=== PATIENT | male | born 1975 ===

== ENCOUNTER 2022-10-23 19:26 | Day surgery (SDC) | payer OTHER, SELFPAY ==
[2022-10-23] VITALS (41 sets, daily range): BP systolic 115–172; BP diastolic 63–95; PULSE 69–120; RESP 16–20; TEMP 36.7–36.8; O2SAT 92–98; BMI 36.2; BMI 36.6
--- NOTE | 2022-10-23 19:40 | ED.LOWEXIN ---
HPI - Extremity Injury (Lower) General Time Seen by Provider: 19:40 Date Seen: 10/23/22 Chief Complaint: Lower Extremity Swelling Stated Complaint: Crash, displaced knee Time Seen by Provider: 10/23/22 19:35 Source: patient and RN notes reviewed Mode of arrival: wheelchair Limitations: no limitations History of Present Illness HPI Narrative: Patient is a 47-year-old male ambulatory in the ED of his own accord with complaint of her right knee injury. He was Going in came in for landing, caught his right foot and had a quick snap in his knee. He notes that his kneecap looks higher, when he activates his quadriceps it causes severe pain in the knee area. He thought maybe his knee was dislocated initially. He denies any numbness tingling of the lower extremity. He was wearing a helmet, did not hit his head, no neck or back pain, no difficulty breathing, no chest wall pain, no abdominal pain, no hip or femur pain on that side. Arms another leg unaffected. Nursing staff appropriately called a TT a when the patient came in. After initial assessment, was decided that TT a could be called off. This is a patient who apparently looks like he has a patellar tendon issue with a high-riding patella. GCS is 15/15. Primary survey reveals no airway breathing or circulatory deficits, no significant disability. Related Data Home Medications Medication Instructions Recorded Confirmed lisinopril 10 mg tablet 10 mg PO DAILY 10/24/22 10/24/22 Allergies Allergy/AdvReac Type Severity Reaction Status Date / Time No Known Drug Allergies Allergy Verified 10/23/22 19:40 Review of Systems Status of ROS: Reports: 10 or more systems reviewed and unremarkable except as noted in History and below [facility] Medical History Hyperlipidemia ?E78.5 - Hyperlipidemia, unspecified (ICD-10) Essential hypertension ?I10 - Essential (primary) hypertension (ICD-10) Surgical History Previous back surgery ?Z98.890 - Other specified postprocedural states (ICD-10) Social History Narrative: Lives with in [place] (she would be MDM if needed). 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 Nonsmoker, no alcohol use. Full code What is your current living situation?: I presently have a place to live Problems where you live: no known problems Problems where you live details: no known problems In the past 12 months, utilities in danger of being shut off: no In the past 12 mos, have been you worried that your food would run out before you had money to buy more?: never true In the past 12 mos, the food you bought just didn't last and you didn't have money to buy more?: never true Smoking Status: Never smoker Second hand tobacco smoke exposure: No How often do you have a drink containing alcohol: never AUDIT-C Alcohol total score: 0 Non-prescribed substance use: denies use Caffeine: Yes (Coffee) How often does anyone, including family, friends and others, physically hurt you: never How often does anyone, including family, friends and others, insult or talk down to you: never How often does anyone, including family, friends and others, threaten you with harm: never How often does anyone, including family, friends and others, scream or curse at you: never service: No Exam Const: Vital Signs, click to edit/add: Vital Signs - 24 hr 10/23/22 19:32 10/23/22 19:51 10/23/22 19:53 Temperature 98.3 F Pulse Rate 88 82 Pulse Rate [Right Pulse Oximeter] 120 H Respiratory Rate 20 Blood Pressure 158/94 H Blood Pressure [Ri ght Upper Arm] 172/95 H Pulse Oximetry 98 97 96 Oxygen Delivery Me thod Room Air 10/23/22 20:12 10/23/22 20:13 10/23/22 20:20 Temperature Pulse Rate 82 85 77 Pulse Rate [Right Pulse Oximeter] Respiratory Rate Blood Pressure 149/78 H Blood Pressure [Ri ght Upper Arm] Pulse Oximetry 97 96 97 Oxygen Delivery Me thod 10/23/22 20:22 10/23/22 20:30 10/23/22 20:32 Temperature Pulse Rate 79 72 77 Pulse Rate [Right Pulse Oximeter] Respiratory Rate Blood Pressure 131/85 136/91 H Blood Pressure [Ri ght Upper Arm] Pulse Oximetry 97 96 96 Oxygen Delivery Me thod 10/23/22 20:33 10/23/22 20:40 10/23/22 20:50 Temperature Pulse Rate 73 78 72 Pulse Rate [Right Pulse Oximeter] Respiratory Rate Blood Pressure Blood Pressure [Ri ght Upper Arm] Pulse Oximetry 97 97 96 Oxygen Delivery Me thod 10/23/22 20:52 10/23/22 21:00 10/23/22 21:02 Temperature Pulse Rate 73 74 77 Pulse Rate [Right Pulse Oximeter] Respiratory Rate Blood Pressure 133/91 H 135/84 Blood Pressure [Ri ght Upper Arm] Pulse Oximetry 96 98 96 Oxygen Delivery Me thod 10/23/22 21:10 10/23/22 21:12 10/23/22 21:20 Temperature Pulse Rate 72 69 73 Pulse Rate [Right Pulse Oximeter] Respiratory Rate Blood Pressure 132/92 H Blood Pressure [Ri ght Upper Arm] Pulse Oximetry 97 96 96 Oxygen Delivery Me thod 10/23/22 21:22 10/23/22 21:30 10/23/22 21:32 Temperature Pulse Rate 81 71 76 Pulse Rate [Right Pulse Oximeter] Respiratory Rate Blood Pressure 133/77 127/86 Blood Pressure [Ri ght Upper Arm] Pulse Oximetry 97 96 96 Oxygen Delivery Me thod 10/23/22 21:40 10/23/22 21:42 10/23/22 21:50 Temperature Pulse Rate 80 75 87 Pulse Rate [Right Pulse Oximeter] Respiratory Rate Blood Pressure 129/93 H Blood Pressure [Ri ght Upper Arm] Pulse Oximetry 97 97 97 Oxygen Delivery Me thod 10/23/22 21:52 10/23/22 22:02 10/23/22 22:12 Temperature Pulse Rate Pulse Rate [Right Pulse Oximeter] Respiratory Rate Blood Pressure 140/91 H 115/63 136/88 Blood Pressure [Ri ght Upper Arm] Pulse Oximetry Oxygen Delivery Me thod 47-year-old male is alert and interactive, sitting on the bed in exam room 8. Pupils equal round reactive to light sclera clear face atraumatic, oropharynx normal, no traumatic changes noted. External ears and nose normal. Neck is supple, no midline tenderness, no cervical adenopathy, no thyromegaly masses or nodules. Back inspected, no midline tenderness no wounds noted. Lungs are clear with good air entry, able speak in complete sentences, voice normal, no tachypnea, no wheezing or crackles. CV regular rate and rhythm, no murmur, normal S1 and S2. Abdomen is soft, nontender, no organomegaly noted. Compression of the pelvis without any pain. No pain over hips. Patella is high-riding on the right knee but the joint line over the knee itself is nontender, no popliteal fossa masses. Knee palpates intact. He has good peripheral pulses of this extremity, can move his ankle and toes without any difficulty. Good cap refill. Arms and left lower extremity unaffected. Documenting provider has reviewed patient's vital signs: yes Course Course Hospital Course: Patient will have imaging with plain films of his knee, likely talk to Orthopedics soon as I see the films. Likely to be placed in knee immobilizer and crutches. Reevaluation(s) Time of Reevaluation #1: 21:30 Reevaluation #1: Reviewed with patient that I had spoken with Orthopedics. Will get a knee immobilizer on, see how he does weight-bearing with this. He may not need crutches but certainly if he does need them they will be provided. He had had 2 Percocet earlier for pain management. Nursing staff will get the knee immobilizer on and assess need for crutches. Time of Reevaluation #2: 22:16 Reevaluation #2: Staff could not get the knee immobilizer on at all, patient feels that when he attempts to straighten his knee he feels the patella pulling further up in has shooting pain in his leg. We are going to attempt to place an IV, put him on pulse oximetry, give him some IV morphine and Versed to see if I can assist to get this knee immobilizer on. Time of Reevaluation #3: 22:53 Reevaluation #3: With 4 mg IV morphine and 2 mg IV Versed, was able to easily get the knee immobilizer on. His was quite anxious, wondering about transfer elsewhere, reviewed with them that surgery for this is not going to happen emergently anywhere we discussed indications for emergent surgery in what types of things went for that, this is not necessary for emergent surgery. She is worried about having him at home, he is concerned himself about safety at home with a knee immobilizer, going upstairs. Did discuss with our hospitalist, she will accept for pain management. They understand that this is not a guarantee for surgery tomorrow. One thought would be though if he does go home, he could possibly see physical therapy to help with recommendations for mobilization with the knee immobilizer on. They are quite happy with the plan to stay overnight. Consultations Consultation #1: Did review with Zenia RICK in Orthopedics. She can see the appearance of the patellar tendon dislocation on the x-ray films. Recommended a knee immobilizer, could bear weight once this was on if he felt comfortable. She will have the office contact him tomorrow for an appointment. Time: 21:26 Vital Signs Vital signs: Initial Vital Signs Temperature 98.3 F 10/23/22 19:32 Temperature Source Temporal Artery Scan 10/23/22 19:32 Pulse Rate 120 H 10/23/22 19:32 Pulse Rhythm Regular 10/23/22 19:32 Pulse Strength 3+ Normal 10/23/22 19:32 Respiratory Rate 20 10/23/22 19:32 Blood Pressure 172/95 H 10/23/22 19:32 Blood Pressure Mean 120 H 10/23/22 19:32 Blood Pressure Position Supine 10/23/22 19:32 Pulse Oximetry 98 10/23/22 19:32 Oxygen Delivery Method Room Air 10/23/22 19:32 Vital Signs Temperature 98.3 F 10/23/22 19:32 Pulse Rate 120 H 10/23/22 19:32 Respiratory Rate 20 10/23/22 19:32 Blood Pressure 172/95 H 10/23/22 19:32 Pulse Oximetry 98 10/23/22 19:32 Oxygen Delivery Method Room Air 10/23/22 19:32 Temperature 98.0 F 10/24/22 10:35 Pulse Rate 67 10/24/22 10:40 Respiratory Rate 16 10/24/22 10:40 Blood Pressure 123/73 10/24/22 10:40 Pulse Oximetry 99 10/24/22 10:40 Oxygen Delivery Method Nasal Cannula 10/24/22 10:40 Oxygen Flow Rate 2 10/24/22 10:40 MDM - Extremity Injury (Lower) Lab Data Labs: Lab Results 10/24/22 Range/Units 10:03 WBC 12.73 H (4.50-11.00) K/uL RBC 5.02 (4.30-5.90) m/uL Hgb 14.7 (13.5-17.5) gm/dL Hct 44.7 (37.0-53.0) % MCV 89 (80-100) fL MCH 29 (26-34) pg MCHC 33 (32-36) gm/dL RDW Coeff of Robin 12.5 (11.5-15.5) % Plt Count 297 (140-440) K/uL Neut % (Auto) 82.1 H (42.0-72.0) % Lymph % (Auto) 11.4 L (20-44) % Edmunds % (Auto) 5.9 (0.0-11.0) % Eos % (Auto) 0.1 (0.0-7.0) % Baso % (Auto) 0.3 (0.0-3.0) % Neut # (Auto) 10.50 H (1.7-7.0) K/uL Lymph # (Auto) 1.50 (0.90-2.90) K/uL Edmunds # (Auto) 0.80 (0.00-0.90) K/UL Eos # (Auto) 0.00 (0.00-0.50) K/uL Baso # (Auto) 0.00 (0.00-0.30) K/uL Abs Immat Gran (auto) 0.00 (0.00-0.30) K/uL Imm/Tot Granulo (auto) 0.2 % Sodium 139 (135-149) mmol/L Potassium 3.9 (3.6-5.1) mmol/L Chloride 104 (96-114) mmol/L Carbon Dioxide 27 (20-32) mmol/L Anion Gap 8 (7-15) mEq/L BUN 10 (5-24) mg/dL Creatinine 0.7 (0.5-1.5) mg/dL Estimated Creat Clear 133.25 Estimated GFR 114 ml/min Glucose 106 (60-115) mg/dL Calcium 9.0 (8.4-10.6) mg/dL Imaging Data XR right knee: Attestation: I have reviewed the pertinent imaging results. Radiologist's impression: Patient: ETHAN MCCRACKEN Facility:?[facility] Patient ID:?[id number] Site Patient ID:?[id number]. Site :?[id number] Study:?XRay Knee Right URGENT TRAUMA-10/23/2022 9:06:06 PM Ordering Physician:Hayden Carlton Final Report: INDICATION: Injury. TECHNIQUE: Three views. IMPRESSION: Elevated patella. Lateral tilt. Probable avulsion of the patellar tendon. Small celena of presumed avulsed bone ventral from the intracondylar notch on the lateral view. No obvious joint effusion. Dictated by Brando Berumen MD @ 10/23/2022 10:11:38 PM (Electronic Signature) Critical Care Time Critical Care Time Critical Care Time: No Discharge Plan Discharge Clinical Impression: Patellar tendon rupture Patient Disposition: Still a Patient Discharge Location: [facility] Activity Detail: WRITTEN OUT BY DR. CHAMBERS Discharge Diet: Regular
--- NOTE | 2022-10-23 19:45 | CRLHL7_ITS ---
For Patients: As a result of the Century Cures Act, medical imaging exams and procedure reports are released immediately into your electronic medical record. You may view this report before your referring provider. If you have questions, please contact your health care provider. INDICATION: Injury. TECHNIQUE: Three views. IMPRESSION: Elevated patella. Lateral tilt. Probable avulsion of the patellar tendon. Small celena of presumed avulsed bone ventral from the intracondylar notch on the lateral view. No obvious joint effusion. Dictated by Brando Berumen MD @ 10/23/2022 10:11:38 PM (Electronically Signed)
[2022-10-23] MEDS: OxyCODONE/APAP 5-325 TABLET 2 TAB PO (20:45)
[2022-10-23] MEDS: MORPHINE 4 MG/ML INJ IVP (22:43)
[2022-10-23] MEDS: MIDAZOLAM HCL 1 MG/ML inj 2 MG IVP (22:44)
--- NOTE | 2022-10-23 23:10 | ED.NURSE ---
pt report given to ARIES HERNANDEZ on [employer]. Patient going to 259
--- NOTE | 2022-10-23 23:33 | P.IMHP_ITS ---
Hospitalist- H&P: HPI History of Present Illness Date Seen: 10/24/22 Chief complaint: Crash, displaced knee Narrative: Clive Gallardo is a 47 year old male who was paragliding near his home in [place] today (does this regularly). He was coming down for a landing when the wind shifted and he caught his right foot in the grass, immediately feeling a snap near his knee. He was unable to ambulate after injury. He was wearing a helmet and did not hit his head; no LOC, no other injuries. ER Course and Findings: - Concern for avulsion of patellar tendon on XR - received Percocet, Morphine, and Midazolam - Ortho consulted by phone; recommended knee immobilizer and f/u; patient had difficulty with pain control and ambulation. Admitted for pain control, therapy evaluation, ortho consult History updated below. Patient is generally healthy; has not had problems with anesthesia in the past. PCP is Dr. Barros in [place]. Review of Systems Status of ROS: Reports: 10 or more systems reviewed and unremarkable except as noted in History and below Narrative: - no chest pain or dyspnea - active regularly with exercise most days of the week [facility] Medical History (Updated 10/24/22 @ 00:55 by Fatimah Orourke MD) Hyperlipidemia ?E78.5 - Hyperlipidemia, unspecified (ICD-10) Essential hypertension ?I10 - Essential (primary) hypertension (ICD-10) Surgical History (Updated 10/24/22 @ 00:03 by Fatimah Orourke MD) Previous back surgery ?Z98.890 - Other specified postprocedural states (ICD-10) Social History (Updated 10/24/22 @ 00:04 by Fatimah Orourke MD) Narrative: Lives with in [place] (she would be MDM if needed). 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 Nonsmoker, no alcohol use. Full code Smoking Status: Never smoker How often do you have a drink containing alcohol: never AUDIT-C Alcohol total score: 0 Non-prescribed substance use: denies use Meds Home Medications and Allergies Home Medications Medication Instructions Recorded Confirmed Type lisinopril 10 mg tablet 10 mg PO DAILY 10/24/22 10/24/22 History Allergies Allergy/AdvReac Type Severity Reaction Status Date / Time No Known Drug Allergies Allergy Verified 10/23/22 19:40 Exam Narrative: Exam Narrative: GEN: Alert and oriented, laying comfortably in bed and answering questions appropriately HEENT: EOMIs bilaterally, no scleral icterus CV: RRR, No concerning murmurs R: LCTA bilaterally without concerning wheezing, air movement is adequate Ab: soft, nondistended Back: normal contours, no concerning skin findings Ext: Wearing knee immobilizer over right knee. Normal capillary refill and sensation of bilateral lower extremities, normal and symmetric peripheral pulses Skin: No skin lesions or rashes on exposed skin Neuro: Nonfocal Psych: Appropriate Const: Vital Signs, click to edit/add: Vital Signs - 24 hr 10/23/22 19:32 10/23/22 19:51 10/23/22 19:53 Temperature 98.3 F Pulse Rate 88 82 Pulse Rate [Right Pulse Oximeter] 120 H Respiratory Rate 20 Blood Pressure 158/94 H Blood Pressure [Ri ght Upper Arm] 172/95 H Pulse Oximetry 98 97 96 Oxygen Delivery Me thod Room Air 10/23/22 20:12 10/23/22 20:13 10/23/22 20:20 Temperature Pulse Rate 82 85 77 Pulse Rate [Right Pulse Oximeter] Respiratory Rate Blood Pressure 149/78 H Blood Pressure [Ri ght Upper Arm] Pulse Oximetry 97 96 97 Oxygen Delivery Me thod 10/23/22 20:22 10/23/22 20:30 10/23/22 20:32 Temperature Pulse Rate 79 72 77 Pulse Rate [Right Pulse Oximeter] Respiratory Rate Blood Pressure 131/85 136/91 H Blood Pressure [Ri ght Upper Arm] Pulse Oximetry 97 96 96 Oxygen Delivery Me thod 10/23/22 20:33 10/23/22 20:40 10/23/22 20:50 Temperature Pulse Rate 73 78 72 Pulse Rate [Right Pulse Oximeter] Respiratory Rate Blood Pressure Blood Pressure [Ri ght Upper Arm] Pulse Oximetry 97 97 96 Oxygen Delivery Me thod 10/23/22 20:52 10/23/22 21:00 10/23/22 21:02 Temperature Pulse Rate 73 74 77 Pulse Rate [Right Pulse Oximeter] Respiratory Rate Blood Pressure 133/91 H 135/84 Blood Pressure [Ri ght Upper Arm] Pulse Oximetry 96 98 96 Oxygen Delivery Me thod 10/23/22 21:10 10/23/22 21:12 10/23/22 21:20 Temperature Pulse Rate 72 69 73 Pulse Rate [Right Pulse Oximeter] Respiratory Rate Blood Pressure 132/92 H Blood Pressure [Ri ght Upper Arm] Pulse Oximetry 97 96 96 Oxygen Delivery Me thod 10/23/22 21:22 10/23/22 21:30 10/23/22 21:32 Temperature Pulse Rate 81 71 76 Pulse Rate [Right Pulse Oximeter] Respiratory Rate Blood Pressure 133/77 127/86 Blood Pressure [Ri ght Upper Arm] Pulse Oximetry 97 96 96 Oxygen Delivery Me thod 10/23/22 21:40 10/23/22 21:42 10/23/22 21:50 Temperature Pulse Rate 80 75 87 Pulse Rate [Right Pulse Oximeter] Respiratory Rate Blood Pressure 129/93 H Blood Pressure [Ri ght Upper Arm] Pulse Oximetry 97 97 97 Oxygen Delivery Me thod 10/23/22 21:52 10/23/22 22:02 10/23/22 22:12 Temperature Pulse Rate Pulse Rate [Right Pulse Oximeter] Respiratory Rate Blood Pressure 140/91 H 115/63 136/88 Blood Pressure [Ri ght Upper Arm] Pulse Oximetry Oxygen Delivery Me thod 10/23/22 22:15 10/23/22 22:22 10/23/22 22:32 Temperature Pulse Rate Pulse Rate [Right Pulse Oximeter] Respiratory Rate Blood Pressure 131/83 140/84 H Blood Pressure [Ri ght Upper Arm] Pulse Oximetry 98 Oxygen Delivery Me thod 10/23/22 22:37 10/23/22 22:40 10/23/22 22:42 Temperature Pulse Rate 86 87 85 Pulse Rate [Right Pulse Oximeter] Respiratory Rate Blood Pressure 130/94 H Blood Pressure [Ri ght Upper Arm] Pulse Oximetry 96 95 93 Oxygen Delivery Me thod 10/23/22 22:50 10/23/22 22:52 10/23/22 22:53 Temperature Pulse Rate 70 73 75 Pulse Rate [Right Pulse Oximeter] Respiratory Rate Blood Pressure 125/80 Blood Pressure [Ri ght Upper Arm] Pulse Oximetry 93 94 94 Oxygen Delivery Me thod 10/23/22 23:00 10/23/22 23:02 10/23/22 23:10 Temperature Pulse Rate 75 75 70 Pulse Rate [Right Pulse Oximeter] Respiratory Rate Blood Pressure 126/79 Blood Pressure [Ri ght Upper Arm] Pulse Oximetry 92 92 94 Oxygen Delivery Me thod 10/23/22 23:12 Temperature Pulse Rate 71 Pulse Rate [Right Pulse Oximeter] Respiratory Rate Blood Pressure 117/83 Blood Pressure [Ri ght Upper Arm] Pulse Oximetry 92 Oxygen Delivery Me thod Assessment and Plan Assessment and plan (1) Patellar tendon rupture: Problem comment: - admit for pain control, therapies, Ortho consult Status: Acute
--- NOTE | 2022-10-24 | CRLHL7_ITS ---
For Patients: As a result of the Cures Act, medical imaging exams and procedure reports are released immediately into your electronic medical record. You may view this report before your referring provider. If you have questions, please contact your health care provider. Indication: patella tendon repair intra-op Technique: Right knee two views. Fluoroscopic time 14.9 seconds. IMPRESSION: Fluoroscopic guidance for patellar tendon repair. Dictated by Chandler Muniz MD @ 10/25/2022 8:50:47 AM (Electronically Signed)
[2022-10-24] MEDS: OXYCODONE 5 MG TABLET PO ×3 (01:14→09:23)
[2022-10-24 04:01] VITALS: BP 113/75; PULSE 60; RESP 16; TEMP 36.4; O2SAT 97
--- NOTE | 2022-10-24 06:51 | PC.NURSE ---
Pt is oriented x3. Afebrile. Pt reports 5/10 knee pain, managed with PRN oxycodone. Pt denies chest pain, SOB and N/V. Pt has been NPO since 0000 for the possibility of surgery today 10/24/22 having consult with ortho this morning. Pt is voiding and up ad [place] with crutches and has knee brace on. Pt slept intermittently throughout night.?Night uneventful. ?
[2022-10-24 07:30] VITALS: BP 150/96; PULSE 69; RESP 16; TEMP 36.8; O2SAT 96
[2022-10-24] MEDS: ACETAMINOPHEN 325 MG TABLET 975 MG PO (09:24)
[2022-10-24 09:59] VITALS: O2SAT 96
[2022-10-24 10:29] LABS: Chloride* 104 mmol/L (96-114)
[2022-10-24 10:30] LABS: Potassium* 3.9 mmol/L (3.6-5.1); Sodium* 139 mmol/L (135-149)
[2022-10-24 10:32] LABS: Creatinine* 0.7 mg/dL (0.5-1.5); Est. Creatinine Clearance* 133.25; Estimated Glomerular Filt Rate 114 ml/min
[2022-10-24 10:33] LABS: Anion Gap 8 mEq/L (7-15); Blood Urea Nitrogen* 10 mg/dL (5-24); Carbon Dioxide* 27 mmol/L (20-32); Glucose* 106 mg/dL (60-115)
[2022-10-24 10:35] VITALS: BP 126/82; PULSE 90; RESP 16; TEMP 36.7; O2SAT 99
[2022-10-24] MEDS: MIDAZOLAM HCL 1 MG/ML inj 2 MG IVP (10:36)
[2022-10-24] MEDS: fentaNYL 100 MCG/2 ML inj IVP (10:36)
[2022-10-24 10:38] VITALS: BP 120/67; PULSE 87; RESP 16; O2SAT 99
[2022-10-24 10:40] VITALS: BP 123/73; PULSE 67; RESP 16; O2SAT 99
--- NOTE | 2022-10-24 10:48 | PM.IMPN1 ---
Progress Note: A&P Assessment and plan (1) Patellar tendon rupture: Problem details: - admit for pain control, therapies, Ortho consult Status: Acute Subjective Date Seen: 10/24/22 Interval history: no acute issuess going to surgery and plan to discharge by ortho from same day surgery Exam Narrative: Exam Narrative: Gen: no acute distress HEENT: NCAT EOMI mmm Neck: Supple CV: RRR normal s1 s2 Lungs: CTAB Abd: Soft,nt, nd Neuro: Alert, oriented, CN grossly intact; nonfocal screening?exam Psych: appropriate affect MSK: age appropriate muscle mass Skin; Warm, dry no rash on face Const: Vital Signs, click to edit/add: Vital Signs - 24 hr 10/23/22 19:32 10/23/22 19:51 10/23/22 19:53 Temperature 98.3 F Pulse Rate 88 82 Pulse Rate [Pulse Oximeter] Pulse Rate [Right Dorsalis Pedis] Pulse Rate [Right Pulse Oximeter] 120 H Respiratory Rate 20 Blood Pressure 158/94 H Blood Pressure [Ri ght Arm] Blood Pressure [Ri ght Upper Arm] 172/95 H Pulse Oximetry 98 97 96 [facility] 10/23/22 20:12 10/23/22 20:13 10/23/22 20:20 Temperature Pulse Rate 82 85 77 Pulse Rate [Pulse Oximeter] Pulse Rate [Right Dorsalis Pedis] Pulse Rate [Right Pulse Oximeter] Respiratory Rate Blood Pressure 149/78 H Blood Pressure [Ri ght Arm] Blood Pressure [Ri ght Upper Arm] Pulse Oximetry 97 96 97 Oxygen Delivery Md thod 10/23/22 20:22 10/23/22 20:30 10/23/22 20:32 Temperature Pulse Rate 79 72 77 Pulse Rate [Pulse Oximeter] Pulse Rate [Right Dorsalis Pedis] Pulse Rate [Right Pulse Oximeter] Respiratory Rate Blood Pressure 131/85 136/91 H Blood Pressure [Ri ght Arm] Blood Pressure [Ri ght Upper Arm] Pulse Oximetry 97 96 96 Oxygen Delivery Me thod 10/23/22 20:33 10/23/22 20:40 10/23/22 20:50 Temperature Pulse Rate 73 78 72 Pulse Rate [Pulse Oximeter] Pulse Rate [Right Dorsalis Pedis] Pulse Rate [Right Pulse Oximeter] Respiratory Rate Blood Pressure Blood Pressure [Ri ght Arm] Blood Pressure [Ri ght Upper Arm] Pulse Oximetry 97 97 96 Oxygen Delivery Me thod 10/23/22 20:52 10/23/22 21:00 10/23/22 21:02 Temperature Pulse Rate 73 74 77 Pulse Rate [Pulse Oximeter] Pulse Rate [Right Dorsalis Pedis] Pulse Rate [Right Pulse Oximeter] Respiratory Rate Blood Pressure 133/91 H 135/84 Blood Pressure [Ri ght Arm] Blood Pressure [Ri ght Upper Arm] Pulse Oximetry 96 98 96 Oxygen Delivery Me thod 10/23/22 21:10 10/23/22 21:12 10/23/22 21:20 Temperature Pulse Rate 72 69 73 Pulse Rate [Pulse Oximeter] Pulse Rate [Right Dorsalis Pedis] Pulse Rate [Right Pulse Oximeter] Respiratory Rate Blood Pressure 132/92 H Blood Pressure [Ri ght Arm] Blood Pressure [Ri ght Upper Arm] Pulse Oximetry 97 96 96 Oxygen Delivery Me thod 10/23/22 21:22 10/23/22 21:30 10/23/22 21:32 Temperature Pulse Rate 81 71 76 Pulse Rate [Pulse Oximeter] Pulse Rate [Right Dorsalis Pedis] Pulse Rate [Right Pulse Oximeter] Respiratory Rate Blood Pressure 133/77 127/86 Blood Pressure [Ri ght Arm] Blood Pressure [Ri ght Upper Arm] Pulse Oximetry 97 96 96 Oxygen Delivery Me thod 10/23/22 21:40 10/23/22 21:42 10/23/22 21:50 Temperature Pulse Rate 80 75 87 Pulse Rate [Pulse Oximeter] Pulse Rate [Right Dorsalis Pedis] Pulse Rate [Right Pulse Oximeter] Respiratory Rate Blood Pressure 129/93 H Blood Pressure [Ri ght Arm] Blood Pressure [Ri ght Upper Arm] Pulse Oximetry 97 97 97 Oxygen Delivery Me thod 10/23/22 21:52 10/23/22 22:02 10/23/22 22:12 Temperature Pulse Rate Pulse Rate [Pulse Oximeter] Pulse Rate [Right Dorsalis Pedis] Pulse Rate [Right Pulse Oximeter] Respiratory Rate Blood Pressure 140/91 H 115/63 136/88 Blood Pressure [Ri ght Arm] Blood Pressure [Ri ght Upper Arm] Pulse Oximetry Oxygen Delivery Me thod 10/23/22 22:15 10/23/22 22:22 10/23/22 22:32 Temperature Pulse Rate Pulse Rate [Pulse Oximeter] Pulse Rate [Right Dorsalis Pedis] Pulse Rate [Right Pulse Oximeter] Respiratory Rate Blood Pressure 131/83 140/84 H Blood Pressure [Ri ght Arm] Blood Pressure [Ri ght Upper Arm] Pulse Oximetry 98 Oxygen Delivery Me od 10/23/22 22:37 10/23/22 22:40 10/23/22 22:42 Temperature Pulse Rate 86 87 85 Pulse Rate [Pulse Oximeter] Pulse Rate [Right Dorsalis Pedis] Pulse Rate [Right Pulse Oximeter] Respiratory Rate Blood Pressure 130/94 H Blood Pressure [Ri ght Arm] Blood Pressure [Ri ght Upper Arm] Pulse Oximetry 96 95 93 Oxygen Delivery Me od 10/23/22 22:50 10/23/22 22:52 10/23/22 22:53 Temperature Pulse Rate 70 73 75 Pulse Rate [Pulse Oximeter] Pulse Rate [Right Dorsalis Pedis] Pulse Rate [Right Pulse Oximeter] Respiratory Rate Blood Pressure 125/80 Blood Pressure [Ri ght Arm] Blood Pressure [Ri ght Upper Arm] Pulse Oximetry 93 94 94 [facility] 10/23/22 23:00 10/23/22 23:02 10/23/22 23:10 Temperature Pulse Rate 75 75 70 Pulse Rate [Pulse Oximeter] Pulse Rate [Right Dorsalis Pedis] Pulse Rate [Right Pulse Oximeter] Respiratory Rate Blood Pressure 126/79 Blood Pressure [Ri ght Arm] Blood Pressure [Ri ght Upper Arm] Pulse Oximetry 92 92 94 Oxygen Delivery Me od 10/23/22 23:12 10/23/22 23:45 10/23/22 23:45 Temperature 98.0 F Pulse Rate 71 Pulse Rate [Pulse Oximeter] 70 Pulse Rate [Right Dorsalis Pedis] 70 Pulse Rate [Right Pulse Oximeter] Respiratory Rate 16 Blood Pressure 117/83 Blood Pressure [Ri ght Arm] 148/90 H Blood Pressure [Ri ght Upper Arm] Pulse Oximetry 92 97 97 [facility] Room Air 10/24/22 04:01 Temperature 97.6 F Pulse Rate Pulse Rate [Pulse Oximeter] 60 Pulse Rate [Right Dorsalis Pedis] 60 Pulse Rate [Right Pulse Oximeter] Respiratory Rate 16 Blood Pressure Blood Pressure [Ri ght Arm] 113/75 Blood Pressure [Ri ght Upper Arm] Pulse Oximetry 97 Oxygen Delivery Me thod Room Air Labs Labs: Laboratory Results - last 24 hr 10/24/22 10:03 Sodium 139 Potassium 3.9 Chloride 104 Carbon Dioxide 27 Anion Gap 8 BUN 10 Creatinine 0.7 Estimated Creat Clear 133.25 Estimated GFR 114 Glucose 106 Calcium 9.0
--- NOTE | 2022-10-24 13:53 | SUR.PREOP ---
TIME?OUT:?1035 PT/RN/MDA?VERIFICATION?OF?SURGICAL?SITE Right Lower Extremity,?PROCEDURE Adductor Canal Block,?AND?CONSENT OBTAINED?PRIOR?TO?INVASIVE?PROCEDURE.
--- NOTE | 2022-10-24 14:16 | PC.NURSE ---
Please see eMar for medications provided to pt for pain management. Crutch training with Laquita Santos by Dr. Vaca. Preop check list and teaching completed. Pt to OR in his hospital bed at 1025 am. His family and belongings were taken to [facility] for planned d/c from that unit to home at 1230 pm. NPO except for pain meds w/sip of water and ice chips sparingly. Adequate output.
--- NOTE | 2022-10-24 15:03 | W.ANESCHARGE ---
Anesthesia Charges Start Date/Time Anesthesia Start Date: 10/24/22 Anesthesia Start Time: 11:00 Stop Date/Time Anesthesia Stop Date: 10/24/22 Anesthesia Stop Time: 13:03
[2022-10-24 16:30] LABS: Basophils Percent Auto 0.3 % (0.0-3.0); Eosinophils Percent Auto 0.1 % (0.0-7.0); Hematocrit 44.7 % (37.0-53.0); Hemoglobin* 14.7 gm/dL (13.5-17.5); Immature Granulocytes Pct Auto 0.2 %; Lymphocytes Percent Auto 11.4 % (20-44); Mean Corpuscular HGB Conc 33 gm/dL (32-36); Mean Corpuscular Hemoglobin 29 pg (26-34); Mean Corpuscular Volume 89 fL (80-100); Monocytes Percent Auto 5.9 % (0.0-11.0); Neutrophils Percent Auto 82.1 % (42.0-72.0); Platelet Count* 297 K/uL (140-440); RDW Coefficient of Variation % 12.5 % (11.5-15.5); Red Blood Count 5.02 m/uL (4.30-5.90); White Blood Count* 12.73 K/uL (4.50-11.00)
[2022-10-24 16:35] LABS: Slide Review Reflex No
--- NOTE | 2022-10-24 16:59 | REH.OT ---
OT: Order received, patient to surgery this am when initially attempted and provided DME resources to family member anticipating pt may benefit from shower bench, medical sales associate for home use. Per PT, pt ambulating with crutchees independently prior to surgery. Patient did not return to floor, went to SDS and dc prior to eval.
--- NOTE | 2022-10-24 19:06 | W.PM.NB ---
Nerve Block Nerve Block Time Seen by Provider: 10:39 Date Seen: 10/24/22 Type of block requested by surgeon for post-operative analgesia: femoral Side: right Time out performed: Yes Verification of patient name: Yes Verification of date of : Yes Site marking: site marked Name of person performing procedure: Donato Continuous monitoring Was continuous monitoring of O2 sat, B/P, cardiac tech, recorded every 15 minutes?: Yes Procedure Checklist: sterile prep, needles and gloves Ultrasound guided. Images saved: Yes Medications given in 5ml increments after negative aspiration: Ropivicaine %: 0.5 mL: 20 Needle gauge: 20 Decadron (mg): 10 Precedex (mcg): 25 Patient tolerated procedure well: Yes Additional comments: Needle noted adjacent to nerve Block Charges Block Charge (with Pro Fee): Femoral Nerve Use of Ultrasound Machine for Block: Yes- US Guidance/pain block
--- NOTE | 2022-10-24 19:07 | W.ANESCHARGE ---
Anesthesia Charges Start Date/Time Anesthesia Start Date: 10/24/22 Anesthesia Start Time: 11:00 Stop Date/Time Anesthesia Stop Date: 10/24/22 Anesthesia Stop Time: 13:03
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
== END 2022-10-24 14:32 | disposition home or self-care (01) ==
LOC: ED 22:58 → MEDSURG 10-24 01:09 → ED 10-25 09:37 → SS 10-25 09:45 → MEDSURG 10-25 09:46
PROVIDERS: Hospitalist; Emergency Provider Family Medicine; PCP Family Medicine; Visit Provider Orthopaedic Surgery Sports Medicine
PROC: (CPT 27380; principal; 2022-10-24 11:15)
DX: S76.111A Strain of right quadriceps muscle, fascia and tendon, initial encounter (principal); G89.18 Other acute postprocedural pain
CPT/HCPCS: 27380; 01320; 01400; 36415; 64447; 73560; 73562; 76942; 80048; 85025; 94761; 97116; 97161; 99284; A9270; G0390; J1100; J2250; J2270; J2371; J2704; J2795; J3010

== ENCOUNTER 2023-07-19 09:30 | Outpatient (RCR) | payer OTHER, SELFPAY ==
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
== END 2023-09-14 09:31 | disposition home or self-care (01) ==
PROVIDERS: PCP Family Medicine; Visit Provider Physician Assistant Surgical
DX: S86.819A Strain of other muscle(s) and tendon(s) at lower leg level, unspecified leg, initial encounter (principal); Z98.890 Other specified postprocedural states; Z51.89 Encounter for other specified aftercare
CPT/HCPCS: 97110; 97112; 97140; 97162